=== PATIENT | male | born 1970 | race Caucasian/White ===

== ENCOUNTER 2018-09-04 16:31 | Emergency (ER) | payer OTHER ==
[~2018-09-04] VITALS: Ht 200.7 cm; Wt 158.3 kg
[2018-09-04 20:31] LABS: BASOPHIL % 0.8 % (0-2); PLATELET COUNT 193 x10^3mcL (130-400); RED CELL DISTRIBUTION WIDTH 13.5 % (11.5-14.5)
[2018-09-04 20:40] LABS: CALCIUM 8.8 mg/dL (8.5-10.1); CARBON DIOXIDE 26.6 mmol/L (21-32); CHLORIDE SERUM 104 mmol/L (98-107); GFR1 > 60 mL/min; GLUCOSE SERUM 102 mg/dL (74-106); POTASSIUM SERUM 3.8 mmol/L (3.5-5.1); SODIUM SERUM 140 mmol/L (136-145)
[2018-09-04 20:45] LABS: ALBUMIN 4.1 g/dL (3.4-5.0); ALKALINE PHOSPHATASE 65 U/L (46-116); ALT/SGPT 52 U/L (16-63); AST/SGOT 26 U/L (15-37); BILIRUBIN TOTAL 0.81 mg/dL (0.20-1.00); C REACTIVE PROTEIN 1.3 mg/dL (<=0.9)
[2018-09-04 21:05] LABS: FREE T4 0.97 ng/dL (0.76-1.46); FREE THYROXINE INDEX 2.5 ug/dL (1.4-4.5); T4(THYROXINE) 7.7 ug/dL (4.7-13.3)
[2018-09-04 21:37] LABS: T3 TOTAL 1.52 ng/mL
[2018-09-04 22:44] VITALS: BP 139/65
== END 2018-09-04 22:45 | disposition home or self-care (01) ==
LOC: ED 16:31
PROVIDERS: Emergency Medicine
DX: R53.1 Weakness (principal); G47.30 Sleep apnea, unspecified; R42 Dizziness and giddiness; R22.32 Localized swelling, mass and lump, left upper limb
CPT/HCPCS: 36415; 36600; 82962; 84439